=== PATIENT | male | born 1980 | race Caucasian/White ===

== ENCOUNTER 2019-09-12 18:48 | Observation (INO) | payer OTHER, SELFPAY ==
[2019-09-12 18:49] VITALS: BP 154/98; PULSE 123; PULSE 128; RESP 18; TEMP 37.1; O2SAT 94; O2SAT 95; BMI 37.5
--- NOTE | 2019-09-12 19:10 | CT_ITS ---
STUDY: CT ABDOMEN AND PELVIS WITH CONTRAST REASON FOR EXAM: Male, 38 years old. ABD PAIN LLQ WITH CHILLS AND NAUSEA X 1 DAY RADIATION DOSAGE (If Supplied By Facility): CTDIvol = ( 25.06 ) mGy, DLP = ( 1374.47 ) mGycm TECHNIQUE: Transaxial images were obtained from the dome of the diaphragm to the symphysis pubis without oral contrast. IV 100mL Isovue-300 was administered. Sagittal and coronal images were reconstructed. Individualized dose optimization techniques were used for this CT. COMPARISON: 12/19/2009 FINDINGS: The visualized lung bases demonstrate a densely calcified granuloma at the left base posteriorly. The visualized portions of the heart are within normal limits. Normal liver. Normal gallbladder and extrahepatic biliary system. Normal spleen. Normal pancreas. Normal bilateral adrenal glands. Normal right kidney. Normal left kidney. Normal visualized stomach. Normal small intestine. There is diverticulosis, with thickening of the colon wall, and pericolonic inflammation changes consistent with acute diverticulitis. No focal abscess is definitively identified at this time. The appendix is visualized and appears normal. Normal abdominal aorta. Normal inferior vena cava. Normal retroperitoneum. Normal urinary bladder. Normal visualized prostate gland. Normal abdominal wall. Normal osseous structures. CT/Abdomen/Pelvis W IV Cont ONLY IMPRESSION: Findings consistent with acute diverticulitis of the proximal sigmoid colon. No definite abscess is identified at this time. Electronically Signed: Navi Bower, at 20:51 EDT Tel , Service support ,
[2019-09-12] MEDS: Ondansetron 4 MG/2 ML Vial IV (19:49)
[2019-09-12] MEDS: Morphine 4 MG/ML Syringe IV (19:51)
[2019-09-12 19:52] LABS: Absolute Lymphocyte Count 2.39 X10^3/uL (0.83-4.51); Absolute Neutrophil Count 10.4 X10^3/uL (2.0-7.7); Basophil# 0.03 X10^3/uL; Basophil% 0.2 % (0-1); Eosinophil# 0.04 X10^3/uL; Eosinophils% 0.3 % (0-5); Hematocrit 43.3 % (40-54); Hemoglobin 15.2 g/dL (13.0-16.5); Lymphocyte # 2.39 X10^3/ul (4.0); Lymphocyte % 17.1 % (19-41); Mean Corp Hgb Conc 35.1 g/dL (32-36); Mean Corpuscular Hgb 31.3 pg (27.0-32.0); Mean Corpuscular Volume 89.1 fL (80-94); Monocyte# 1.14 X10^3/uL; Monocyte% 8.1 % (0-10); NRBC Flagged by Analyzer 0 % (0-5); Neutrophil # 10.36 X10^3/uL (2.7-7.7); Neutrophil % 73.9 % (47-70); Platelet Count 232 K/mm3 (150-450); RBC Distribution Width CV 12.1 % (11.6-14.6); RBC Distribution Width SD 38.9 fl (35.1-43.9); Red Blood Count 4.86 M/mm3 (4.6-6.2)
[2019-09-12 19:54] VITALS: BP 141/95; PULSE 102; RESP 18; TEMP 37.9; O2SAT 94
[2019-09-12 20:09] LABS: ALB/GLOB Ratio 1.2 RATIO (0.9-2.4); AST(SGOT) 27 U/L (15-37); Alanine Aminotransfer ALT/SGPT 64 U/L (16-61); Albumin, Serum 4.1 g/dL (3.2-5.0); Alkaline Phosphatase 74 U/L (45-117); Anion Gap 9 (5-15); BUN 9 mg/dL (7-18); BUN/Creat Ratio 10.3 RATIO (10-20); Calcium,Total 9.2 mg/dL (8.5-10.1); Chloride 101 mmol/L (98-107); Creatinine, Serum 0.88 mg/dL (0.70-1.30); EST Glomerular Filtration Rate 104 mL/min (>60); Est Glom Filt Rate - Afr Amer 126 mL/min (>60); Estimated Creatinine Clearance 131.15 ml/min; Globulin 3.5 g/dL (2.2-4.2); Glucose 98 mg/dL (74-106); Protein, Total 7.6 g/dL (6.4-8.2); Sodium Level 138 mmol/L (136-145)
--- NOTE | 2019-09-12 20:52 | ED.DCSUM_ITS ---
History of Present Illness Chief Complaint: Abd Pain Narrative: Patient presenting for evaluation secondary to abdominal pain. Patient reports that he has been dealing with abdominal pain since yesterday. Initially was started with a generalized malaise, and then today has progressively worsened and become focal in his left lower quadrant. Pain is moderate, worse with palpation and movement. Patient states that is been associated with some nausea. He also reports that he has been getting subjective fevers and chills. Denies any diarrhea, bloody or mucousy stools. Patient denies that he has had any prior similar episodes in the past. No history of abdominal surgeries. He is otherwise healthy, not immunosuppressed. Review of systems otherwise negative. Past Medical History - Allergies and Home Meds Allergies/Adverse Reactions: Allergies meloxicam Adverse Reaction (Verified 09/12/19 18:48) Chest tightness IT MADE MY HEART RATE ODD Primary Care Physician: Mason Wynn DO [Primary Care Provider] - Prior records reviewed: Yes Past Medical History: None Smoking Status: Former smoker Review of Systems All systems negative except as indicated General: Denies: Chills, Fever, Sweats Eyes: Denies: Visual changes - bilaterally, Diplopia ENT: Denies: Rhinorrhea, Sore throat Cardiovascular: Denies: Chest pain, Palpitations Respiratory: Denies: Dyspnea, Cough, Dyspnea on exertion Gastrointestinal: Reports: Abdominal pain, Nausea, Vomiting Genitourinary: Denies: Dysuria, Hematuria, Frequency Musculoskeletal: Denies: Back pain, Extremity Pain Skin: Denies: Rash, Wounds Neurological: Denies: Headache, Weakness, Numbness Physical Exam Vital Signs/Narrative: Vital Signs Temp Pulse Resp BP Pulse Ox 09/12/19 19:54 100.3 F H 102 H 18 141/95 H 94 09/12/19 18:49 98.8 F 123 H 18 154/98 H 95 Inital Vital Signs reviewed: Yes General: Well nourished, Well developed, Obese, No Acute Distress Head: Normocephalic, Atraumatic Eyes: Perrl, EOMI ENT: Moist mucous membranes, No rhinorrhea Neck: Supple, Nontender Cardiovascular: Regular rhythm, No murmurs, Tachycardia Respiratory: No distress, CTA bilaterally, Chest nontender Abdomen: Soft, Nondistended, Normal bowel sounds, Tender, Guarding. Negative for: Rebound tenderness Back: Nontender, Normal Inspection Extremities: Nontender, No edema Skin: Normal color, No rash Neurological: Alert, Oriented x3, Cranial nerves II-XII grossly intact, Normal Strength, Normal Sensation Psychological: Normal affect, Normal Mood Diagnostic/Tx/Re-eval Clinical Impression(s) from Imaging Studies Abdomen/Pelvis CT 09/12/19 19:10 IMPRESSION: Findings consistent with acute diverticulitis of the proximal sigmoid colon. No definite abscess is identified at this time. Electronically Signed: Navi Bower, at 20:51 EDT Tel , Service support , Laboratory Data 09/12/19 09/12/19 09/12/19 19:40 19:40 19:40 WBC 14.0 H RBC 4.86 Hgb 15.2 Hct 43.3 MCV 89.1 MCH 31.3 MCHC 35.1 RDW Std Deviation 38.9 RDW Coeff of Davina 12.1 Plt Count 232 MPV 11.0 Immature Gran % (Auto) 0.400 Neut % (Auto) 73.9 H Lymph % (Auto) 17.1 L [place] % (Auto) 8.1 Eos % (Auto) 0.3 Baso % (Auto) 0.2 Absolute Neuts (auto) 10.4 H Absolute Lymphs (auto) 2.39 Nucleated RBC % 0 Sodium 138 Potassium 4.0 Chloride 101 Carbon Dioxide 28.0 Anion Gap 9 BUN 9 Creatinine 0.88 Estim Creat Clear Calc 131.15 Est GFR (MDRD) Af Amer 126 Est GFR (MDRD) Non-Af 104 BUN/Creatinine Ratio 10.3 Glucose 98 Lactic Acid 1.0 Calcium 9.2 Total Bilirubin 1.10 H AST 27 ALT 64 H Alkaline Phosphatase 74 Total Protein 7.6 Albumin 4.1 Globulin 3.5 Albumin/Globulin Ratio 1.2 - Medical Decision Making Patient presented secondary to abdominal pain. Physical exam was concerning for diverticulitis. He did have some guarding and tachycardia was concern for sepsis, potential perforation, or abscess collection. Patient was given a 2 L fluid bolus. Pain was addressed with morphine Zofran. Patient was found to have a leukocytosis. Normal bicarbonate, no anion gap, lactic acid found to be normal. I did review the patient's CT scan with general surgery, who is in agreement that the patient likely does not require any surgical intervention at this point but will require bowel rest and IV antibiotics. Patient was started on Zosyn. Patient will be admitted under the hospitalist. Disposition: Admit to Med Surg ED Disposition - Plan for ED Patient: Disposition: Acute Care Hospital [facility] Diagnosis: Diverticulitis, Sepsis
[2019-09-12 20:54] VITALS: BP 140/83; PULSE 96; RESP 18; TEMP 37.5; O2SAT 96
--- NOTE | 2019-09-12 21:17 | HP.PCM_ITS ---
Problem List (1) Diverticulitis Status: Acute (2) Sepsis Status: Acute History of Present Illness Date of Admission: 09/12/19 Chief Complaint: abdominal pain The patient is a 38 year old M presents with abdominal. Began on the , but was mild. Much more intense today and localized to LLQ. Never had this before. Presented to ED and had a CT scan that confirmed diverticulitis. He received pip/tazo and IVF. [] Past Medical History Medical History: Medical History (Last Updated 09/12/19 @ 21:[address] Juan R Mcfarlane DO) Hyperlipidemia E78.5 Hypertriglyceridemia E78.1 Allergies meloxicam Adverse Reaction (Verified 09/12/19 18:48) Chest tightness IT MADE MY HEART RATE ODD Home Medications: Ambulatory Orders Medication Instructions Recorded Ezetimibe [Zetia] 10 mg PO DAILY 09/12/19 Rosuvastatin Calcium 40 mg PO DAILY 09/12/19 Surgical History: no surgical history Smoking Status: Former smoker Tobacco Use: Non-smoker Alcohol: Rare Drugs: None - *Family History Maternal Family History: Family History (Last Updated 09/12/19 @ 21:[address] Juan R Mcfarlane DO) Grandfather CAD (coronary artery disease) Review of Systems Constitutional: Denies: Anorexia, Chills, Fever Eyes: Denies: Blurred vision, Double vision HEENT: Denies: Head Aches, Sinus Congestion, Sinus Drainage Cardiovascular: Denies: Chest Pain, Palpitations Respiratory: Denies: Cough, Shortness of Breath, Shortness of breath at rest, Sputum production Gastrointestinal: Reports: Abdominal Pain. Denies: Hematemesis, Hematochezia, Nausea Skin: Denies: Rash, Wounds Comment: All ROS are otherwise negative except as mentioned above and in the HPI. VTE Information - Inpt Only VTE Present on Admission: No VTE Mechan Device Prophylaxis: None VTE Pharm Prophylaxis ordered?: Yes Patient Problems: Active and Suspected Problems (Last Updated 09/12/19 @ 21:[address] JuanR Mcfarlane DO) Diverticulitis (Acute) Sepsis (Acute) - Physical Exam Vitals/I&O's: Vital Signs Temp Pulse Resp BP Pulse Ox 37.9 C H 102 H 18 141/95 H 94 09/12/19 19:54 09/12/19 19:54 09/12/19 19:54 09/12/19 19:54 09/12/19 19:54 Oxygen Delivery Method Room Air Weight: 128.9 kg Body Mass Index (BMI) 37.5 General: Alert, Cooperative, No apparent distress HEENT: Atraumatic, Normocephalic, - - no icterus Oral: Moist Mucosa, No Gingival or Mucosal Lesions/ Ulcerations Neck: No Nodes, Thyroid Normal Size and Texture Lungs: Clear to auscultation, Normal air movement, No rhonchi, No wheeze Cardiovascular: Regular rate, Regular Rhythm, Normal S1, Normal S2, No murmurs Abdomen: Bowel Sounds Present, Soft, Non-Distended, No Hepato-splenomegaly, Tender - LLW with rebound tenderness Extremities: No edema, No Calf Tenderness Skin: No rashes, No breakdown Musculoskeletal: No Tenderness to Palpation of Joints or Extremities, No Muscle Wasting Neurological: Sensory exam intact to light touch and pain, Coordination normal Psych/Mental Status: Normal Affect, Appropriate Laboratory Results 09/12/19 19:40: WBC 14.0 H, RBC 4.86, Hgb 15.2, Hct 43.3, MCV 89.1, MCH 31.3, MCHC 35.1, RDW Std Deviation 38.9, RDW Coeff of Davina 12.1, Plt Count 232, MPV 11.0, Immature Gran % (Auto) 0.400, Neut % (Auto) 73.9 H, Lymph % (Auto) 17.1 L, [place] % (Auto) 8.1, Eos % (Auto) 0.3, Baso % (Auto) 0.2, Absolute Neuts (auto) 10.4 H, Absolute Lymphs (auto) 2.39, Nucleated RBC % 0 09/12/19 19:40: Sodium 138, Potassium 4.0, Chloride 101, Carbon Dioxide 28.0, Anion Gap 9, BUN 9, Creatinine 0.88, Estim Creat Clear Calc 131.15, Est GFR (MDRD) Af Amer 126, Est GFR (MDRD) Non-Af 104, BUN/Creatinine Ratio 10.3, Glucose 98, Calcium 9.2, Total Bilirubin 1.10 H, AST 27, ALT 64 H, Alkaline Phosphatase 74, Total Protein 7.6, Albumin 4.1, Globulin 3.5, Albumin/Globulin Ratio 1.2 09/12/19 19:40: Lactic Acid 1.0 Current Medications Sodium Chloride () 1,000 mls @ 150 mls/hr IV .Q6H40M ALFREDITO Assessment/Plan All Active Problems (Last Updated 09/12/19 @ 21:[address] Juan R Mcfarlane, DO) Diverticulitis (Acute) Sepsis (Acute) 1. acute diverticulitis: no perforation. cefazolin and metronidazole. clear diet. Dr. Mead contacted via ED and informed them no acute surgical intervention. If condition worsens, consider repeat CT +/- general surgery consultation. If improves, consider advancing diet. Pain control (no NSAIDs given allergy to meloxicam) 2. Sepsis: 2/ #1. follow up cultures. No COVID contacts, nor does he have any respiratory symptoms to suggest COVID at this time. No indication to check for COVID at this time. 3. HLP/Hypertriglyceridemia: hold home meds for now. 4. VTE prophylaxis: moderate risk given sepsis. LMWH. 5. Advanced care planning: pt is FULL CODE Inpatient E&M: 72927 Init Hosp L3
[2019-09-12] MEDS: 0.9% Normal Saline 1,000 ML 150 ML IV (21:24)
[2019-09-12 21:31] VITALS: BP 139/81; PULSE 98; RESP 16; TEMP 37.4; O2SAT 99
--- NOTE | 2019-09-12 21:33 | ED.RN ---
ONLY 1000 ML NS GIVEN TO PT PER MD.
[2019-09-12 21:50] VITALS: BMI 37.0
[2019-09-12 21:51] VITALS: BP 139/83; PULSE 96; RESP 16; TEMP 36.9; O2SAT 98
[2019-09-12 21:57] VITALS: BMI 37.1
[2019-09-12] MEDS: metroNIDAZOLE 500 MG/100 ML BAG 100 MG IV (22:15)
[2019-09-12] MEDS: oxyCODONE 5 MG Tablet PO (22:25)
[2019-09-13 04:52] VITALS: BP 120/78; PULSE 84; RESP 16; TEMP 36.9; O2SAT 95
[2019-09-13] MEDS: 0.9% Normal Saline 1,000 ML 150 ML IV (04:58)
[2019-09-13] MEDS: metroNIDAZOLE 500 MG/100 ML BAG 100 MG IV ×2 (04:58→13:30)
[2019-09-13] MEDS: Acetaminophen 325 MG Tablet 650 MG PO ×2 (04:59→12:51)
[2019-09-13 06:10] LABS: Absolute Neutrophil Count 8.3 X10^3/uL (2.0-7.7); Basophil# 0.03 X10^3/uL; Basophil% 0.2 % (0-1); Eosinophil# 0.12 X10^3/uL; Hematocrit 40.4 % (40-54); Hemoglobin 13.7 g/dL (13.0-16.5); Lymphocyte % 21.8 % (19-41); Mean Corp Hgb Conc 33.9 g/dL (32-36); Mean Corpuscular Hgb 30.6 pg (27.0-32.0); Mean Corpuscular Volume 90.2 fL (80-94); Monocyte% 9.7 % (0-10); NRBC Flagged by Analyzer 0 % (0-5); Neutrophil # 8.31 X10^3/uL (2.7-7.7); Neutrophil % 66.9 % (47-70); Platelet Count 225 K/mm3 (150-450); RBC Distribution Width CV 11.9 % (11.6-14.6); RBC Distribution Width SD 38.9 fl (35.1-43.9); Red Blood Count 4.48 M/mm3 (4.6-6.2); White Blood Count 12.4 K/mm3 (4.4-11.0)
[2019-09-13] MEDS: Cefazolin 1 GM/50 ML BAG IV ×2 (06:10→12:49)
[2019-09-13 09:03] LABS: ALB/GLOB Ratio 1.1 RATIO (0.9-2.4); AST(SGOT) 23 U/L (15-37); Alanine Aminotransfer ALT/SGPT 49 U/L (16-61); Albumin, Serum 3.4 g/dL (3.2-5.0); Alkaline Phosphatase 62 U/L (45-117); Anion Gap 7 (5-15); BUN 8 mg/dL (7-18); Calcium,Total 8.3 mg/dL (8.5-10.1); Chloride 104 mmol/L (98-107); Creatinine, Serum 0.73 mg/dL (0.70-1.30); EST Glomerular Filtration Rate 129 mL/min (>60); Est Glom Filt Rate - Afr Amer 156 mL/min (>60); Globulin 3.2 g/dL (2.2-4.2); Glucose 95 mg/dL (74-106); Potassium 3.7 mmol/L (3.5-5.1); Protein, Total 6.6 g/dL (6.4-8.2); Sodium Level 136 mmol/L (136-145)
[2019-09-13 10:00] VITALS: BP 137/87; PULSE 81; RESP 18; TEMP 36.8; O2SAT 98
--- NOTE | 2019-09-13 12:01 | DCINST_ITS ---
- Discharge Diagnoses Current Active Problems: Current Active and Chronic Problems (Last Updated 09/12/19 @ 21:[address] Juan R Mcfarlane DO) Diverticulitis (Acute) Sepsis (Acute) You will use the following diet at home:: No restrictions Your food should be the consistency of: Regular Your liquids should be the consistency of: Regular/Thin Discharge Activity: Return to Normal Activity Weight Bearing Status: Full weight bearing Additional Instructions: advance to regular diet at home Allergies/Adverse Reactions: Allergies meloxicam Adverse Reaction (Verified 09/12/19 18:48) Chest tightness IT MADE MY HEART RATE ODD Medications to take at Discharge Ezetimibe [Zetia] 10 mg PO QHS 09/12/19 Rosuvastatin Calcium 40 mg PO QHS 09/12/19 Ciprofloxacin [Cipro] 500 mg PO BID #15 tab 09/13/19 Metronidazole [Flagyl] 500 mg PO TID #22 tab 09/13/19 proMETHazine tablet [Phenergan tablet] 12.5 - 25 mg PO Q6H PRN PRN #20 tab 09/13/19 The following prescriptions were given: Ciprofloxacin [Cipro] 500 mg PO BID #15 tab Transmission Status: Pending to [id number] Metronidazole [Flagyl] 500 mg PO TID #22 tab Transmission Status: Pending to [id number] proMETHazine tablet [Phenergan tablet] 12.5 - 25 mg PO Q6H PRN PRN #20 tab PRN Reason: Nausea Transmission Status: Pending to [id number] Primary Care Physician: Mason Wynn DO [Primary Care Provider] - Please follow up with your Primary Care Physician in: in 7-10 days Test Results: Test results from this visit will be discussed in further detail at your follow- up appointment, if applicable.
[2019-09-13 14:32] VITALS: BP 127/88; PULSE 70; RESP 18; TEMP 36.6; O2SAT 99
--- NOTE | 2019-09-13 14:43 | PHA.DC.MC ---
Pharmacy Service has performed discharge medication reconciliation and counseling for this patient. 1. CIPROFLOXACIN 500MG PO BID 2. METRONIDAZOLE 500MG PO TID 3. PROMETHAZINE 12.5-25MG PO Q6H PRN NAUSEA The patient's discharge medication list was reviewed for discrepancies and discrepancies were resolved. Home Medications Ezetimibe [Zetia] 10 mg PO QHS 09/12/19 Rosuvastatin Calcium 40 mg PO QHS 09/12/19 Ciprofloxacin [Cipro] 500 mg PO BID #15 tab 09/13/19 Metronidazole [Flagyl] 500 mg PO TID #22 tab 09/13/19 proMETHazine tablet [Phenergan tablet] 12.5 - 25 mg PO Q6H PRN PRN #20 tab 09/13/19 The patient was counseled on the following discharge medications and changes in medications for homegoing were reviewed. The Reason for Use, instructions for use, and potential side effects were reviewed for all new medications. The patient's questions regarding all of their medications were answered. The patient was able to verbally demonstrate an understanding of their discharge medications.
--- NOTE | 2019-09-13 17:28 | PCM.DC.SUM ---
Discharge Date and Diagnosis Date of Admission: 09/12/19 Date of Discharge: 09/13/19 - Primary Discharge Diagnosis #1 acute diverticulitis of the proximal sigmoid colon #2 acute sepsis secondary to acute diverticulitis of the proximal sigmoid colon Hospital Course and Treatment Operations: None Procedures: None Summary of Care Provided: The patient is a 38 year old M was seen in the emergency room at [facility] with a chief complaint abdominal pain x24 hours. Patient also complained of feeling subjective fevers and chills, he denied any diarrhea or bloody stools. Work-up in the emergency room included a CBC which revealed an elevated white count at 14,000, chemistry profile revealed a bilirubin of 1.1 and an ALT of 64, otherwise chemistry profile was unremarkable. CAT scan of the abdomen and pelvis was obtained which showed diverticulitis of the sigmoid colon. Patient was felt to be septic due to a tachycardia and his elevated white blood cell count, lactic acid was normal. Patient was placed in observation status on MedSurg, given IV Ancef and Flagyl and kept on a clear liquid diet. The following day, patient was examined and evaluated, his white blood cell count had decreased and he was afebrile, he had less abdominal pain and requested to be discharged home with treatment. On examination he appeared in good health and spirits. Vital signs as documented. Skin warm and dry and without overt rashes. Neck without JVD, neck was supple, trachea midline, thyroid was normal. Lungs clear bilaterally, normal air movement was noted. Heart exam notable for regular rhythm, normal sounds and absence of murmurs, rubs or gallops. Abdomen-slightly tender to palpation but no rebound abdominal tenderness was noted, without evidence of organomegaly, masses, or abdominal aortic enlargement. Bowel sounds are present, abdomen is not distended. Extremities nonedematous, no cyanosis was noted, no clubbing was noted. Neuro: Cranial nerves II through XII are grossly intact, no focal motor deficits were noted, sensation to light touch and pinprick intact, motor exam 5/5 throughout. Psych: Patient is alert and oriented x3, he does not appear anxious or depressed, he does not appear agitated. I felt it was acceptable for the patient to be discharged home with antibiotics, he was instructed to follow-up with his PCP in 7 to 10 days. - Physical Exam Vitals/I&O's: Vital Signs Temp Pulse Resp BP Pulse Ox 97.9 F 70 18 127/88 H 99 09/13/19 14:32 09/13/19 14:32 09/13/19 14:32 09/13/19 14:32 09/13/19 14:32 Oxygen Delivery Method Room Air Weight: 127.4 kg Body Mass Index (BMI) 37.0 Intake and Output for Last 24 Hours 09/11/19 09/12/19 09/13/19 23:59 23:59 23:59 Intake Total 1150 / 1270 4775.0 / 4775.0 Output Total 2200 / 2200 Balance 1150 / 1270 2575.0 / 2575.0 Laboratory Results 09/12/19 19:40: WBC 14.0 H, RBC 4.86, Hgb 15.2, Hct 43.3, MCV 89.1, MCH 31.3, MCHC 35.1, RDW Std Deviation 38.9, RDW Coeff of Davina 12.1, Plt Count 232, MPV 11.0, Immature Gran % (Auto) 0.400, Neut % (Auto) 73.9 H, Lymph % (Auto) 17.1 L, [place] % (Auto) 8.1, Eos % (Auto) 0.3, Baso % (Auto) 0.2, Absolute Neuts (auto) 10.4 H, Absolute Lymphs (auto) 2.39, Nucleated RBC % 0 09/12/19 19:40: Sodium 138, Potassium 4.0, Chloride 101, Carbon Dioxide 28.0, Anion Gap 9, BUN 9, Creatinine 0.88, Estim Creat Clear Calc 131.15, Est GFR (MDRD) Af Amer 126, Est GFR (MDRD) Non-Af 104, BUN/Creatinine Ratio 10.3, Glucose 98, Calcium 9.2, Total Bilirubin 1.10 H, AST 27, ALT 64 H, Alkaline Phosphatase 74, Total Protein 7.6, Albumin 4.1, Globulin 3.5, Albumin/Globulin Ratio 1.2 09/12/19 19:40: Lactic Acid 1.0 09/13/19 05:40: WBC 12.4 H, RBC 4.48 L, Hgb 13.7, Hct 40.4, MCV 90.2, MCH 30.6, MCHC 33.9, RDW Std Deviation 38.9, RDW Coeff of [place] 11.9, Plt Count 225, MPV 11.0, Immature Gran % (Auto) 0.400, Neut % (Auto) 66.9, Lymph % (Auto) 21.8, [place] % (Auto) 9.7, Eos % (Auto) 1.0, Baso % (Auto) 0.2, Absolute Neuts (auto) 8.3 H, Absolute Lymphs (auto) 2.70, Nucleated RBC % 0 09/13/19 05:40: Sodium 136, Potassium 3.7, Chloride 104, Carbon Dioxide 25.0, Anion Gap 7, BUN 8, Creatinine 0.73, Estim Creat Clear Calc 158.10, Est GFR (MDRD) Af Amer 156, Est GFR (MDRD) Non-Af 129, BUN/Creatinine Ratio 11.0, Glucose 95, Calcium 8.3 L, Total Bilirubin 1.10 H, AST 23, ALT 49, Alkaline Phosphatase 62, Total Protein 6.6, Albumin 3.4, Globulin 3.2, Albumin/Globulin Ratio 1.1 Discharge Activity: Return to Normal Activity Weight Bearing Status: Full weight bearing Home Medications: Medications to take at Discharge Ezetimibe [Zetia] 10 mg PO QHS 09/12/19 Rosuvastatin Calcium 40 mg PO QHS 09/12/19 Ciprofloxacin [Cipro] 500 mg PO BID #15 tab 09/13/19 Metronidazole [Flagyl] 500 mg PO TID #22 tab 09/13/19 proMETHazine tablet [Phenergan tablet] 12.5 - 25 mg PO Q6H PRN PRN #20 tab 09/13/19 Following Prescrptions Were Given to Patient: Ciprofloxacin [Cipro] 500 mg PO BID #15 tab Transmission Status: [facility] by [id number] Metronidazole [Flagyl] 500 mg PO TID #22 tab Transmission Status: Received by [id number] proMETHazine tablet [Phenergan tablet] 12.5 - 25 mg PO Q6H PRN PRN #20 tab PRN Reason: Nausea Transmission Status: Re[facility] by [id number] Primary Care Physician: Mason Wynn DO [Primary Care Provider] - Please follow up with your Primary Care Physician in: in 7-10 days Disposition: Home Minutes spent on discharge:: 31 Patient Condition:: Stable Medical Necessity - Tobacco Use Smoking Status: Former smoker Tobacco Use: Cigarettes Meaningful Use Info Meaningful Use Diagnoses (Choose all that apply): None applicable OBSV E&M: 45742 Observation care discharge
== END 2019-09-13 15:03 | disposition home or self-care (01) ==
LOC: ED 21:08 → MS3 09-13 07:08
PROVIDERS: Emergency Provider Emergency Medicine; PCP Student in an Organized Health Care Education/Training Program; Visit Provider Internal Medicine
DX: A41.9 Sepsis, unspecified organism (principal); K57.32 Diverticulitis of large intestine without perforation or abscess without bleeding; E78.5 Hyperlipidemia, unspecified; Z87.891 Personal history of nicotine dependence; Z79.899 Other long term (current) drug therapy
CPT/HCPCS: 36415; 74177; 80053; 83605; 85025; 87040; 96361; 96365; 96366; 96367; 96374; 96375; 99218; 99284; J7030; Q9967; G0378; J2405

== ENCOUNTER → 2021-04-22 | Outpatient (CLI) | payer OTHER, SELFPAY | END | disposition home or self-care (01) | LOC: LABSPEC 10:54 | PROVIDERS: PCP Student in an Organized Health Care Education/Training Program; Referring Provider Physician Assistant Medical; Visit Provider Physician Assistant Medical | DX: Z11.52 Encounter for screening for COVID-19 (principal) | CPT/HCPCS: 87635; U0005; U0003 ==

== ENCOUNTER → 2021-04-28 | Outpatient (CLI) | payer OTHER, SELFPAY | END | disposition home or self-care (01) | LOC: LABSPEC 12:15 | PROVIDERS: Referring Provider Physician Assistant; Visit Provider Physician Assistant | DX: Z11.52 Encounter for screening for COVID-19 (principal) | CPT/HCPCS: 87635; U0005; U0003 ==

== ENCOUNTER 2023-10-05 04:54 | Emergency (ER) | payer OTHER, SELFPAY ==
[2023-10-05 04:55] VITALS: BP 169/109; PULSE 76; RESP 18; TEMP 36.1; O2SAT 96; BMI 40.4
--- NOTE | 2023-10-05 05:10 | RAD_ITS ---
EXAM: XR CHEST, 2 VIEWS CLINICAL INDICATION: chest pain chest pain TECHNIQUE: Frontal and lateral views of the chest. COMPARISON: CT scan abdomen and pelvis 09/12/2019. FINDINGS: LUNGS AND PLEURAL SPACES: There is a cyst calcified granuloma overlying the retrocardiac region of the left lung base. There is no demonstrated pulmonary infiltrate. No pneumothorax. No effusion. HEART: Unremarkable. Cardiac silhouette not enlarged. MEDIASTINUM: Central airways and mediastinal contour are unremarkable. BONES/JOINTS: There are multilevel degenerative changes in the visualized spine. No acute fracture. SOFT TISSUES: Unremarkable. RAD/Chest PA and Lateral IMPRESSION: No acute findings in the chest. Electronically Signed: Ray Valero MD at 6:20 EDT Reading Location ID and State: [facility] / [place] , Service support ,
--- NOTE | 2023-10-05 05:10 | ED.VIS.CHEST ---
HPI History of Present Illness Chief Complaint: Chest Pain Informant: patient Onset/Context/Timing Onset: Today (about an hour prior to arrival) Activity at onset: sudden (upon waking up; was lying supine in bed at the time) Timing: Intermittent (once) and Lasts (brief) Quality: Positive for Sharp Location: Substernal (and forehead) Current Severity: Gone Maximum Severity: Severe Worsened By: Nothing (no known trigger) Relieved By: Nothing Associated Symptoms: Negative for Nausea, Vomiting, Diaphoresis, Dyspnea, Cough, Fever, Lightheadedness or Palpitations Narrative Narrative: Healthy 42-year-old male presents soon after a very brief episode of discomfort he had in the middle of his chest that he also simultaneously felt in his had, more frontal. No other associated symptoms; no neurologic symptoms, vomiting, vision change, dyspnea, vomiting, palpitations, or lightheadedness/syncope. He states this is occurred couple other times randomly 1 time he was just sitting when it occurred not necessarily lying down like he was this morning. These 3 or so episodes have occurred all in the last month or so. States he feels fine right now. No recent illness, no leg pain or swelling no history of DVT or PE. States he has had some elevated blood pressure measurements recently so he is following up with a green building design specialist for that, he states he recently had a stress test that was negative but his blood pressure went up. CVD Risk Factors: Positive for Family History 1' </=55 and Smoking (former); Negative for Hypertension, Diabetes or Hypercholesterolemia PE Risk Factors: Negative for Recent Travel/Surgery, Recent Immobilization, Prior DVT or PE, Cancer or OCP + Smoking + >/=35 [facility] Medical History Family history of brain cancer [place] disease Arthritis Abnormal ECG during exercise stress test Hypertriglyceridemia Hyperlipidemia Home Medications ?Medication ?Instructions ?Recorded ?Last Taken ?Type ezetimibe 10 mg tablet 10 mg PO QHS cholesterol 09/12/19 09/11/19 History rosuvastatin 40 mg tablet 40 mg PO QHS cholesterol 09/12/19 09/11/19 History krill oil 500 mg capsule 2,000 mg PO DAILY 09/08/23 Unknown History metoprolol succinate 25 mg 25 mg PO DAILY 09/08/23 Unknown History tablet,extended release 24 hr multivitamin 1 tab PO DAILY 09/08/23 Unknown History trazodone 100 mg tablet 50 - 100 mg PO QHS 10/05/23 Unknown History Allergy/AdvReac Type Severity Reaction Status Date / Time meloxicam AdvReac Chest Verified 10/05/23 05:03 tightness/palps Family History (Updated 09/08/23 @ 14:29 by Anna Lyons RN) Grandfather CAD (coronary artery disease) Father Hyperlipidemia Breast cancer Heart disease Grandmother Lupus Diabetes Social History Smoking Status: Former smoker alcohol intake: current alcohol intake frequency: holidays/special occasions only substance use type: does not use ROS ROS ED Constitutional Constitutional ED: Denies chills or fever(s) Eyes Eyes: Denies change in vision or diplopia ENT ENT ED: Denies rhinorrhea or sore throat Cardiovascular Cardiovascular: Reports as per HPI and chest pain; Denies palpitations or syncope Respiratory/Chest Respiratory/Chest: Denies cough, dyspnea, hemoptysis or pain on inspiration Gastrointestinal Gastrointestinal: Denies abdominal pain, diarrhea, nausea or vomiting Genitourinary Genitourinary ED: Denies dysuria or hematuria Musculoskeletal Musculoskeletal: Denies back pain or neck pain Integumentary Denies abscess or rash Neurologic Neurologic: Reports as per HPI; Denies paresthesias or weakness Psychiatric Psychiatric: Denies suicidal thoughts EXAM Physical Exam Const Vital Signs: 10/05/23 04:55 10/05/23 04:57 Temperature 96.9 F L Temperature Source Temporal Pulse Rate 76 Respiratory Rate 18 Respiratory Effort Normal Blood Pressure 169/109 H Blood Pressure Mean 129 Pulse Ox 96 Oxygen Delivery Method Room Air Positive well nourished and well developed General Appearance ED: well developed and NAD HEENT Reports moist mucous membranes normocephalic and atraumatic Eyes PERRL and EOMs intact bilaterally Neck full ROM and supple Chest Wall inspection of chest normal and palpation of chest normal Resp normal respiratory effort and clear to auscultation bilaterally Cardio regular rate, regular rhythm and no murmurs Peripheral Pulses: pulses 2+ throughout GI non-tender and non-distended Auscultation: normoactive bowel sounds Palpation: soft Back/Spine no CVA tenderness General Back: other FROM Extremity normal to inspection Extremity Narrative: No calf tenderness General Extremety ED: Negative for edema, pulses abnormal or tenderness General Extremity: Negative for edema or pulses abnormal Neuro oriented x3, CN's II-XII intact bilaterally and no sensory deficits noted 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 Blood pressure is a little elevated at 169/109 in triage, but however, prior to discussing causes of this, he is a little anxious which may be related. I do not think this is cardiac at all. I do not think he needs troponin testing, but in considering the unlikely possibility of aortic etiology, I obtained a screening two-view chest x-ray which on my interpretation shows narrow mediastinum and is otherwise normal. I do not think he needs any other emergent testing right now. His PERC score is 0, therefore no other ancillary testing indicated at this time in order to rule out pulmonary embolus was essentially ruled out. I discussed all this with him he is comfortable with following up as scheduled. Repeat blood pressure 142/99. Radiography Diagnostic Testing: Clinical Impression(s) from Imaging Studies Chest X-Ray 10/05/23 05:10 IMPRESSION: No acute findings in the chest. Electronically Signed: Ray Valero MD at 6:20 EDT Reading Location ID and State: [facility] / [place] , Service support , Rhythm Strip Rhythm Strip: Sinus Rhythm Rate: 75 Ectopy: None EKG Initial EKG: Attestation: I personally reviewed and interpreted this EKG as follows: Interpretation: Sinus Rhythm and No Acute Injury Pattern Comments: Normal EKG Prior EKG tracings: not available for review Discharge Plan Triage Chief Complaint: Chest Pain ED Provider: Fabricio Kapoor Dx/Rx/DC Orders Clinical Impression: Chest pain Instructions: ED Chest Pain, Uncertain Cause Prescriptions: No Action metoprolol succinate 25 mg tablet extended release 24 hr 25 mg PO DAILY multivitamin Tablet 1 tab PO DAILY krill oil 500 mg capsule 2,000 mg PO DAILY ezetimibe 10 MG tablet 10 mg PO QHS rosuvastatin 40 MG tablet 40 mg PO QHS trazodone 100 mg tablet 50 - 100 mg PO QHS Primary Care Provider: Mason Wynn Referrals: Doctor,Your [Non-Staff] - Keep Liss appointment Print Language: Romansh Disposition Disposition: Home, Self Care
[2023-10-05 06:37] VITALS: BP 127/98; PULSE 72; RESP 18; TEMP 35.7; O2SAT 95
== END 2023-10-05 06:38 | disposition home or self-care (01) ==
LOC: ED 05:28
PROVIDERS: Emergency Provider Emergency Medicine; PCP Student in an Organized Health Care Education/Training Program; Visit Provider Emergency Medicine
DX: R07.9 Chest pain, unspecified (principal); Z87.891 Personal history of nicotine dependence; E78.5 Hyperlipidemia, unspecified; Z79.899 Other long term (current) drug therapy
CPT/HCPCS: 71046; 93005; 99283

== ENCOUNTER → 2023-10-27 | Outpatient (CLI) | payer OTHER, SELFPAY ==
--- NOTE | 2023-10-27 06:27 | CT_ITS ---
INDICATION: chest pain, HTN limited chest over read ONLY EXAMINATION: CT CHEST WITHOUT CONTRAST - CT Chest W/O Contrast Injection TECHNIQUE: Helically acquired images were obtained of the chest. A radiation dose optimization technique was used for this scan. IV Contrast dosage and agent: None. COMPARISON: None. FINDINGS: Limited CT of the chest obtained through the heart for performance of coronary artery calcium scoring which will be read by Cardiology. The entire lungs are not included in the study. LUNGS, PLEURA AND LARGE AIRWAYS: No masses, consolidation, or edema. 1.5 cm calcified granuloma in the posterior left lower lobe on image 38. No pleural effusion or thickening. No pneumothorax. HEART AND PERICARDIUM: Heart size is normal. No pericardial effusion. CORONARY ARTERIES: Coronary artery calcification is not seen. VESSELS: Thoracic aorta is not dilated. MEDIASTINUM AND CONCHA: No mediastinal or hilar adenopathy. Esophagus is unremarkable. No hiatal hernia. UPPER ABDOMEN: No acute pathology. BONES: No suspicious lytic or blastic abnormality. CT/Limited Chest CT Cardiac Only IMPRESSION: Negative CT chest without contrast. Electronically Signed: Doug Lopez MD at 10:59 EDT ,
--- NOTE | 2023-10-27 07:16 | CA.SCORE ---
Calcium Scoring Date of Study:: 10/27/23 Indications Indications: Chest pain Coronary Calcium Scoring: High-resolution Computed Tomographic imaging of the chest was performed on [10/27/2023], with particular attention paid to the coronary arteries. Images from the examination were analyzed for the presence and extent of coronary artery calcification , using coronary calcium quantification software. The patient tolerated the procedure well and there were no complications. The results of the coronary calcification analysis are provided below. Findings Coronary Artery Left Main (LM): 0 Left Anterior Descending (LAD): 0 Left Circumflex (LCX): 0 Right Coronary Artery (RCA): 0 Total Agatston Score: 0 Percentile Rankinth percentile Calcium Scoring Interpretation: Different methods to categorize the overall amount of coronary plaque. Overall amount CAC SIS Visual of coronary plaque P1 Mild -100 <2 1-2 vessels with mild amount of plaque P2 Moderate 101-300 3-4 1-2 vessels with moderate amount, 3 vessels with mild amount of plaque P3 Severe 301-999 5-7 3 vessels with moderate amount, 1 vessel with severe amount of plaque P4 Extensive >1000 >8 2-3 vessels with severe amount of plaque Conclusion: No atherosclerotic plaquing noted.
== END | disposition home or self-care (01) ==
LOC: CT 06:25
PROVIDERS: PCP Student in an Organized Health Care Education/Training Program; Referring Provider Internal Medicine Cardiovascular Disease; Visit Provider Internal Medicine Cardiovascular Disease
DX: R07.9 Chest pain, unspecified (principal)
CPT/HCPCS: 75571; 76380

== ENCOUNTER 2024-09-19 11:53 | Outpatient (RCR) | payer OTHER, SELFPAY | END 2024-09-28 23:59 | LOC: NS 11:53 | PROVIDERS: PCP Student in an Organized Health Care Education/Training Program; Referring Provider Student in an Organized Health Care Education/Training Program; Visit Provider Student in an Organized Health Care Education/Training Program | DX: Z71.3 Dietary counseling and surveillance (principal); E66.01 Morbid (severe) obesity due to excess calories; Z68.39 Body mass index [BMI] 39.0-39.9, adult | CPT/HCPCS: 97803 ==